=== PATIENT | female | born 1950 | race Caucasian/White ===

== ENCOUNTER → 2016-12-27 17:05 | Outpatient (CLI) | payer MEDICARE, BC ==
[2009-08-14 11:39] VITALS: BMI 21.1
== END | disposition home or self-care (01) ==
LOC: D.MAMMO 15:30
DX: Z12.31 Encounter for screening mammogram for malignant neoplasm of breast (principal)

== ENCOUNTER → 2019-10-08 18:42 | Outpatient (CLI) | payer MEDICARE, BC ==
[2009-08-14 11:39] VITALS: BMI 21.1
== END | disposition home or self-care (01) ==
LOC: D.MAMMO 09-24 10:15
PROVIDERS: ATTEND Emergency Medicine
DX: Z12.31 Encounter for screening mammogram for malignant neoplasm of breast (principal)

== ENCOUNTER 2020-02-06 15:01 | Outpatient (CLI) | payer MEDICARE, BC ==
[2009-08-14 11:39] VITALS: BMI 21.1
== END 2020-02-06 23:59 | disposition home or self-care (01) ==
LOC: D.MAMMO 15:01
PROVIDERS: ATTEND Emergency Medicine
DX: R92.8 Other abnormal and inconclusive findings on diagnostic imaging of breast (principal)